=== PATIENT | male | born 1960 | race Caucasian/White ===

== ENCOUNTER 2017-09-16 10:45 | Emergency (ER) | payer MEDICAID ==
[2017-09-16] MEDS ORDERED: Mupirocin 2% OINT* TUBE TOPICAL ONE (11:14)
[2017-09-16] MEDS ORDERED: Cephalexin CAP* 500 MG PO ONE (11:18)
[2017-09-16 11:53] VITALS: BP 113/69
--- NOTE | 2017-09-16 18:19 | ED ---
Denton Moya Jade, scribed for Shawn Mckeon MD on 09/16/17 at 1115 . Skin Complaint - HPI Summary HPI Summary: Pt is a 57 y/o male who presents to the ED c/o wound infection. He had a colectomy 1 year ago, which resulted in a scar over his lower abdomen. The scar area started bothering him today at 8:00. He noticed a green scab and tried to clean it with hydrogen peroxide, but it kept bubbling up. Pt notes only mild pain currently. He also complains of an intermittent intense sawing sensation over his bladder area for the past few weeks. Pt denies any testicular pain. No PMHx MRSA. Allergic to Lorazepam. - History of Current Complaint Chief Complaint: EDRashSkinAbscess Time Seen by Provider: 09/16/17 11:04 Stated Complaint: POSS. INFECTION Hx Obtained From: Patient Onset/Duration: Started Hours Ago - 8:00, Still Present Timing: Constant Current Severity: None Pain Intensity: 0 Pain Scale Used: 0-10 Numeric Skin Location: Abdomen - Lower Related History: Other: - Colectomy - Allergy/Home Medications Allergies/Adverse Reactions: Allergies Allergy/AdvReac Type Severity Reaction Status Date / Time lorazepam [From Ativan] Allergy Agitation Verified 09/16/17 11:43 PMH/Surg Hx/FS Hx/Imm Hx Endocrine/Hematology History: Denies: Hx Diabetes Cardiovascular History: Denies: Hx Hypertension, Hx Pacemaker/ICD, Other Cardiovascular Problems/ Disorders GI History: Reports: Hx Diverticulosis Denies: Other GI Disorders Musculoskeletal History: Reports: Hx Arthritis Denies: Other Musculoskeletal History Sensory History: Reports: Hx Contacts or Glasses - GLASSES, Hx Vision Problem - glasses Denies: Hx Hearing Aid Opthamlomology History: Reports: Hx Contacts or Glasses - GLASSES, Hx Vision Problem - glasses Psychiatric History: Reports: Hx Anxiety - ON MEDS Denies: Hx Panic Disorder - Surgical History Surgery Procedure, Year, and Place: right thumb and left wrist surgery. Colectomy 1 year ago. Hx Anesthesia Reactions: No Infectious Disease History: No Infectious Disease History: Denies: Traveled Outside the [place] in Last 30 Days - Family History Known Family History: Positive: Diabetes - Social History Alcohol Use: None Substance Use Type: Reports: None Smoking Status (MU): Light Every Day Tobacco Smoker Type: Cigarettes Amount Used/How Often: PACK A DAY Have You Smoked in the Last Year: Yes Review of Systems Negative: Fever Positive: Abdominal Pain - Lower abd - over surgical site Positive: other - Intermittent "sawing" pain over bladder area Positive: Other - Colectomy wound irritation, possible infection All Other Systems Reviewed And Are Negative: Yes Physical Exam - Summary Physical Exam Summary: General: well-appearing, no pain distress Skin: warm, color reflects adequate perfusion, dry. 1.5 cm skin abrasion over the right lower abdomen with surrounding erythema. No drainage, palpable fluid collection, or abscess. Mild tenderness at abrasion site. Head: normal Eyes: EOMI, JOE ENT: normal Neck: supple, nontender Respiratory: CTA, breath sounds present Cardiovascular: RRR Abdomen: soft, nontender Bowel: present Musculoskeletal: normal, strength/ROM intact Neurological: sensory/motor intact, A&O x3 Psychological: affect/mood appropriate Triage Information Reviewed: Yes Vital Signs On Initial Exam: Initial Vitals Temp Pulse Resp BP Pulse Ox 98 F 62 18 150/75 98 09/16/17 10:52 09/16/17 10:52 09/16/17 10:52 09/16/17 10:52 09/16/17 10:52 Vital Signs Reviewed: Yes Diagnostics - Vital Signs Vital Signs Temp Pulse Resp BP Pulse Ox 09/16/17 10:52 98 F 62 18 150/75 98 - Laboratory Lab Statement: Any lab studies that have been ordered have been reviewed, and results considered in the medical decision making process. Course/Dx - Course Course Of Treatment: F/U PMD; RETURN IF WORSE. - Diagnoses Provider Diagnoses: Cellulitis, Abrasion Discharge - Sign-Out/Discharge Documenting (check all that apply): Discharge/Admit/Transfer - Discharge - Discharge Plan Condition: Stable Disposition: HOME Prescriptions: Cephalexin CAP* [Keflex CAP*] 500 mg PO QID #39 cap Mupirocin 2% OINT* [Bactroban 2 % Oint*] 1 applic TOPICAL BID #30 gm Patient Education Materials: Cellulitis (ED), Abrasion (ED) Referrals: Jacky Shankar MD [Primary Care Provider] - Additional Instructions: FOLLOW UP WITH YOUR DOCTOR. RETURN TO THE EMERGENCY DEPARTMENT FOR ANY WORSENING OF YOUR CONDITION OR QUESTIONS OR CONCERNS. - Billing Disposition and Condition Condition: STABLE Disposition: Home The documentation as recorded by the scribDenton judd Jade accurately reflects the service I personally performed and the decisions made by me, Shawn Mckeon MD.
== END 2017-09-16 11:53 | disposition home or self-care (01) ==
LOC: ED 10:45
DX: S30.811A Abrasion of abdominal wall, initial encounter (principal); X58.XXXA Exposure to other specified factors, initial encounter; Y92.9 Unspecified place or not applicable; F41.9 Anxiety disorder, unspecified; Z90.49 Acquired absence of other specified parts of digestive tract; Z87.19 Personal history of other diseases of the digestive system; Z79.899 Other long term (current) drug therapy; Z88.8 Allergy status to other drugs, medicaments and biological substances
CPT/HCPCS: 99282; A9270-GY

== ENCOUNTER 2017-11-24 11:33 | Emergency (ER) | payer MEDICAID ==
[2017-11-24] MEDS ORDERED: HYDROcodone/ACETAMIN 5-325 MG* 1 TAB PO ONE (12:04)
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
--- NOTE | 2017-11-24 13:21 | RAD ---
INDICATION: LEFT wrist pain post fall. COMPARISON: No relevant prior exams available on the [facility] [place]. TECHNIQUE: AP, lateral, and oblique views LEFT wrist. REPORT: Mild soft tissue swelling about the wrist without focality. Normal articular alignment. No cortical disruption or suspicious trabecular irregularity to suggest acute fracture. Healed fracture at the distal diaphysis metaphysis junction of the ulna noted. 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 IMPRESSION: #. Mild soft tissue swelling. #. Negative for acute fracture.
[2017-11-24 14:00] VITALS: BP 132/75
== END 2017-11-24 13:59 | disposition home or self-care (01) ==
LOC: ED 11:33
DX: S63.502A Unspecified sprain of left wrist, initial encounter (principal); W18.30XA Fall on same level, unspecified, initial encounter; Y93.9 Activity, unspecified; Y92.9 Unspecified place or not applicable; F41.9 Anxiety disorder, unspecified; Z88.8 Allergy status to other drugs, medicaments and biological substances; F17.210 Nicotine dependence, cigarettes, uncomplicated
CPT/HCPCS: 99282